=== PATIENT | male | born 1950 | race Caucasian/White ===

== ENCOUNTER 2016-12-19 14:57 | Outpatient (CLI) ==
[2016-01-04 23:37] VITALS: BMI 20.9
[2016-12-19 16:20] LABS: BASOPHILS # (AUTO) 0.1 K/uL (0-0.2); BASOPHILS % (AUTO) 0.5 % (0.0-3.0); EOSINOPHILS # (AUTO) 0.1 K/ul (0.0-0.7); EOSINOPHILS % (AUTO) 0.7 % (0.0-7.0); HEMATOCRIT 38.5 % (42.0-52.0); HEMOGLOBIN 12.8 g/dl (14.0-18.0); IMMATURE GRANULOCYTE % (AUTO) 0.5 % (0.0-5.0); LYMPHOCYTES # (AUTO) 1.7 K/uL (0.60-3.4); LYMPHOCYTES % (AUTO) 13.8 (10.0-50.0); MEAN CORPUSCULAR HEMOGLOBIN 28.5 pg (27.0-31.0); MEAN CORPUSCULAR HGB CONC 33.2 (31.8-35.4); MEAN CORPUSCULAR VOLUME 85.7 fl (80.0-94.0); MONOCYTES # (AUTO) 0.7 K/uL (0.4-2.0); MONOCYTES % (AUTO) 5.2 (0-10); NEUTROPHILS % (AUTO) 79.3; PLATELET COUNT 374 10^3/uL (140-440); RED BLOOD COUNT 4.49 10^6/ul (4.70-6.10); WHITE BLOOD COUNT 12.65 K/ul (4.2-10.2)
[2016-12-19 16:53] LABS: ALBUMIN 3.6 g/dL (3.4-5.0); ALBUMIN/GLOBULIN RATIO 0.97; ANION GAP 13.8; BILIRUBIN,TOTAL 0.43 mg/dL (0.00-1.20); BUN/CREATININE RATIO 11.11; CALCIUM 9.5 mg/dL (8.2-10.2); CHOL/HDL RATIO 4.6 (4.5-6.4); CREATININE 1.26 mg/dL (0.60-1.10); POTASSIUM 3.8 mmol/L (3.5-5.1); TOTAL PROTEIN 7.3 g/dL (5.8-8.1)
--- NOTE | 2016-12-20 09:09 | MRI ---
EXAM: MRI right hip without contrast. HISTORY: Pain right hip. No right hip surgery reported. Symptoms chronic.. TECHNIQUE: Using a coil on a high field strength magnet multiplanar multisequence large and small f ield of view imaging obtained through the level of the right hip without intravenous or intra-articu lar gadolinium contrast. COMPARISON: CT pelvis 08/12/2013. MRI right hip 07/15/2013. Two-view plain film examination right hip 07/12/2013.. FINDINGS: Visualized lower lumbar spine shows discogenic disease L3-L4 L4-L5. Associated facet art hropathy. Both sacroiliac joints symmetric in appearance and intact. Mild osteoarthrosis pubic sym physis. Both femoral heads seated with normal lateral coverage. Some loss of bilateral femoral heads [place]. Intraosseous cyst formation over the anterior right femoral head neck junction. No joint aidan tered subchondral bone marrow edema or bone erosions involving either hip.. Tiny focus of subchondr al cyst formation over the superior lateral right hip acetabulum. Otherwise no large paralabral cys ts involving either hip. Some marginal osteophyte formation right hip. Slight anterior-superior we ightbearing eccentric joint space narrowing involving the right hip. No greater trochanteric or miles opsoas bursitis involving either hip. The muscle bulk of the pelvis and surrounding both hips relat ively symmetric without acute strain. Both proximal hamstring origins intact. Both sciatic nerves normal in appearance along their visual ized course. No inguinal bowel herniation or enlarged lymphadenopathy. No pelvic sidewall lymphade nopathy. No pelvic ascites.. Question transurethral resection prostate defect. Bladder otherwise within normal limit in morphology. Incidental note of endovascular stent grafting of a infrarenal ab dominal aortic aneurysm.. IMPRESSION: Discogenic disease at L3-L5. Associated facet arthropathy. Mild osteoarthrosis pubic symphysis. No acute fracture, stress fracture or avascular necrosis involving either hip. No hip effusions , s urrounding bursitis or acute muscle strain. Mild osteoarthrosis right hip. Specifically involving t he right hip, there is loss of femoral head sphericity with some intraosseous cyst formation over th e anterior right femoral head neck junction. Correlate clinically for femoral acetabular impingemen t.
== END 2016-12-19 14:58 | disposition home or self-care (01) ==
LOC: RAD 14:57
PROVIDERS: ATTEND Nurse Practitioner Family
DX: M25.551 Pain in right hip (principal); Z72.0 Tobacco use; Z12.5 Encounter for screening for malignant neoplasm of prostate
CPT/HCPCS: 36415; 80053; 80061; 84443; 85025

== ENCOUNTER 2017-02-07 10:46 | Emergency (ER) ==
[2017-02-07] MEDS ORDERED: LIDOCAINE 1 % AMP 5 ML (SUTURES) SQ STA (10:48)
[2017-02-07 10:50] VITALS: BP 161/87; TEMP 97.4; BMI 20.2
--- NOTE | 2017-02-07 11:28 | ED.PDOC ---
General ED Provider: Dr. CARLOTTA STORM Chief Complaint: Knee Pain/Injury Stated Complaint: Patient states he accidetally shot his left knee with an arrow on the left knee. He tried to pull it out but was too painful. Time Seen by Physician: 10:49 Mode of Arrival: Wheelchair Information Source: Patient Exam Limitations: No limitations Primary Care Provider: PADMAJA GONGORA Nursing and Triage Documentation Reviewed and Agree: Yes Skin Complaint Exam - Skin/Soft Tissue Complaint/Exam Onset/Duration: 1 hour Symptoms Are: Still present Initial Severity: Severe Current Severity: Severe Location: Left knee Character: Reports: Painful Associated Signs and Symptoms: Reports: Tenderness Skin Findings: Present: Other (Arrow stuck on the left knee appears to be superfical.) Review of Systems - Review Of Systems Constitutional: Reports: No symptoms Eyes: Reports: No symptoms Ears, Nose, Mouth, Throat: Reports: No symptoms Respiratory: Reports: No symptoms Cardiac: Reports: No symptoms GI: Reports: No symptoms : Reports: No symptoms Musculoskeletal: Reports: Joint pain Skin: Reports: No symptoms Neurological: Reports: No symptoms Endocrine: Reports: No symptoms Hematologic/Lymphatic: Reports: No symptoms All Other Systems: Reviewed and Negative Past Medical History - Past Medical History Endocrine: Reports: None Cardiovascular: Reports: CAD, Other Respiratory: Reports: None Hematological: Reports: None Gastrointestinal: Reports: None Genitourinary: Reports: Other (urinary retension) Neuro/Psych: Reports: None Musculoskeletal: Reports: None Cancer: Reports: None Other Pertinent Past Medical History: HERNIA REPAIR. STENTS. - Surgical History General Surgical History: Reports: Other (AAA repair). Denies: CABG (HERNIA REPAIR. STENTS.) - Family History Family History: Reports: Unknown - Social History Smoking Status: Current every day smoker, Heavy tobacco smoker Hx Substance Use: Yes (SUBSTANCE IN THE PAST) Alcohol Screening: None - Immunizations Tetanus Shot up to Date: Yes Physical Exam - Physical Exam Appearance: Ill-appearing Ill-appearing: Mild Pain Distress: Severe Musculoskeletal: Normal strength, No edema, No calf tenderness, Limited ROM (on the left knee due to pain ) Skin: Warm, Dry, Normal color Neurological: Sensation intact, Motor intact, Cranial nerves intact, Alert, Oriented Psychiatric: Anxious Interpretation - Radiology Interpretation Radiology Interpretation By: ED Physician Radiology Results: Positive (Foreign body on the left knee) Radiology Interpretation By: ED Physician Radiology Results: Negative (previous foreign body not visualized.) Procedures - Laceration/Wound Repair left knee Wound Description: Other (circular from the arrow trauma. ) Wound Length (cm): 1 Wound Width: 1 Wound Depth: 1 Wound Explored: Clean Wound Irrigated: Yes Wound Prep: Hibiclens Anesthesia: Lidocaine Suture Size and Type: ethlone 4.0 Number of Sutures: 4 (Running ) Layer Closure?: No Sterile Dressing Applied?: Yes Splint Applied?: No - Foreign Body Removal Location of Foreign Object: Left knee Foreign Object: cross akin Arrow Depth of Object: 1.5 cm Type of Anesthesia: Local Medication Used: Yes: Lidocaine Prep: Hibiclens Irrigation: Yes (150 cc) Skin Incised: No Instruments Used: Yes: Manual Foreign Body Identified and Removed: Yes (cross akin Arrow removed intact) Critical Care Note - Critical Care Note Total Time (mins): 0 Course - Course Orders, Labs, Meds: Orders Category Date Time Status Lidocaine HCl/Pf [Lidocaine 1 % Amp 5 ml (Sutures)] MEDS 02/07/17 12:45 Discontinued 5 ml .ROUTE .STK-MED ONE Lidocaine HCl/Pf [Lidocaine 1 % Amp 5 ml (Sutures)] MEDS 02/07/17 10:48 Discontinued 5 ml SQ ONCE STA KNEE, LEFT 4 VIEWS Stat RADS 02/07/17 10:48 Completed Medications Discontinued Medications Generic Name Dose Route Start Last Admin Trade Name Chilo PRN Reason Stop Dose Admin Lidocaine HCl 5 ml 02/07/17 10:48 02/07/17 11:01 Lidocaine 1 % Amp 5 Ml (Sutures) SQ 02/07/17 10:49 5 ml ONCE STA Administration Vital Signs: Temp Pulse Resp BP Pulse Ox 02/07/17 10:46 97.4 F L 77 20 161/87 H 96 Departure - Departure Time of Disposition: 11:30 Disposition: HOME SELF-CARE Discharge Problem: Injury of knee, Foreign body (FB) in soft tissue Instructions: Laceration (ED), Soft Tissue Foreign Body (ED) Condition: Fair Pt referred to PMD for follow-up: Yes Additional Instructions: Have sutures removed in 7-10 days Report signs of infection Allergies/Adverse Reactions: Allergies No Known Allergies Allergy (Verified 02/07/17 10:50) Home Medications: Ambulatory Orders 1 [No Reported Medications] 02/07/17 Disposition Discussed With: Patient, Family
--- NOTE | 2017-02-07 11:35 | DI ---
EXAM: Left knee, three views. HISTORY: Pain. Trauma with arrow. COMPARISON: None. FINDINGS: AP, oblique and notch views of the left knee. On the initial image, a metallic tip the Ar row was seen with its tip projecting over the distal femur. No lateral view is available. This was removed and the soft and two images. There are no acute or healing fractures. There are no lytic o r blastic lesions. Soft tissues are normal. There is no joint effusion. No significant degenerati ve changes are seen. IMPRESSION: 1. No acute fracture. No radiopaque foreign bodies. 2. Removal of arrow from soft tissues.
[2017-02-07] MEDS ORDERED: LIDOCAINE 1 % AMP 5 ML (SUTURES) ONE (12:45)
== END 2017-02-07 12:01 | disposition home or self-care (01) ==
LOC: ED 10:46
DX: S81.042A Puncture wound with foreign body, left knee, initial encounter (principal); F17.210 Nicotine dependence, cigarettes, uncomplicated; W26.8XXA Contact with other sharp object(s), not elsewhere classified, initial encounter
CPT/HCPCS: 99283

== ENCOUNTER 2024-01-12 13:55 | Inpatient (IN) ==
--- NOTE | 2024-01-12 14:03 | ED.PDOC ---
General ED Provider: Dr. ESTELLA KIDD MD Chief Complaint: Fever Stated Complaint: Patient is a 73-year-old male that reported to the emergency department in care of his daughter for a 2-day history of shortness of breath and weakness. Patient stated that he woke up Thursday and felt short of breath and felt very weak all day. Patient stated that he tried to stay home and rest. Patient's daughter stated that she called her primary care doctor and they were able to get him in today. At the primary care office today the patient was found to be hypoxic and so was sent to the emergency department upon arrival to the emergency department the patient had an O2 sat of 87% on room air. Patient was also febrile with a temperature of 101 Fahrenheit. Patient stated that his highest temperature that he had at home was 102.3 Fahrenheit and took ibuprofen which helped reduce his temperature. Patient also complained of nausea and vomiting with his current symptoms. Patient stated that he is also had a few bouts of diarrhea. Patient has a past medical history of a CVA 2 years ago. Patient's current NIH is 0. Patient's GCS is 15. Placed patient on 2 L nasal cannula to keep his O2 sat above 94%. Patient denies any chest pain, dizziness, syncope, loss of consciousness, abdominal pain, or any other acute symptoms not currently mentioned in the HPI. Patient denied being around any other sick contacts. Time Seen by Provider: 01/12/24 13:57 Mode of Arrival: Walk-In Information Source: Patient Exam Limitations: No limitations Primary Care Provider: LUCHO SOOD MD Nursing and Triage Documentation Reviewed and Agree: Yes Does Patient Take Opioids?: No Is Patient Opioid Naive?: No What is Opioid Naive?: *Opioid Naive implies the patient is not already taking opioids or not chronically receiving opioids on a daily basis. *PRN dosing is not "usually" associated with tolerance. *Patients are at higher risk of over-sedation and aspiration. Is Patient Opioid Tolerant?: No What is Opioid Tolerant?: *Opioid Tolerance implies less than the expected response to an opioid. *Acquired tolerance is defined by the patient taking 60mg of oral morphine daily (or equianalgesic dose of another opioid) for 1 week or more. *Often associated with chronic pain. *May take more than usual dose to achieve desired pain control. Review of Systems Review Of Systems Constitutional: Reports Fever Eyes: Reports No symptoms Ears, Nose, Mouth, Throat: Reports No symptoms Respiratory: Reports No symptoms Cardiac: Reports No symptoms GI: Reports No symptoms : Reports No symptoms Musculoskeletal: Reports No symptoms Skin: Reports No symptoms Neurological: Reports No symptoms Endocrine: Reports No symptoms Hematologic/Lymphatic: Reports No symptoms All Other Systems: Reviewed and Negative [facility] Medical History Stroke I63.9 - Cerebral infarction, unspecified (ICD-10) Hiatal hernia K44.9 - Diaphragmatic hernia without obstruction or gangrene (ICD-10) Abdominal aortic aneurysm I71.4 - Abdominal aortic aneurysm, without rupture (ICD-10) Disorder of prostate N42.9 - Disorder of prostate, unspecified (ICD-10) Social History Smoking and tobacco status: Current every day smoker Tobacco: How many years used: 50 Passive smoking exposure: Yes Quit status: not considering quitting Second hand smoke exposure: Yes Alcohol intake: former Year quit: 1998 Counseling given: No Counseling provided: none Substance use type: does not use Counseling given: No Counseling provided: none Special chanel needs: No Agree to transfusion: Yes Household members: significant other Housing: house Marital status: S SINGLE Lives independently: Yes Number of children: 1 Number of grandchildren: 3 Highest education level completed: high school graduate Financial difficulty paying for basics: not very hard service: No Current occupational status: retired 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 Pets and animals: Yes (cat) History of recent travel: No Sexually active: Yes Do you think of yourself as: straight/heterosexual Current gender identity: male Seatbelt use: always Drives intoxicated or rides with intoxicated class a regional truck driver: No Water heater temperature set < 120 degrees: Yes Working smoke detector in home: Yes Fire extinguisher in home: No Carbon monoxide detector in home: No Firearms in home: No Surgical History History of heart surgery 2014 - stent for Abdominal Aortic Aneurysm Z98.890 - Other specified postprocedural states (ICD-10) Status post hernia repair Z98.890 - Other specified postprocedural states (ICD-10) Physical Exam Physical Exam Appearance: Reports Ill-appearing Ill-appearing: Mild Pain Distress: None Eyes: Reports RAMIN, EOMI and Conjunctiva clear ENT: Reports Ears normal, Nose normal and Oropharynx normal Neck: Supple Respiratory: Reports Airway patent, Breath sounds diminished (Breath sounds diminished bibasilar.) and Crackles (Crackles heard in the bibasilar lung muñiz.) Cardiovascular: Reports RRR, Pulses normal, No rub and No murmur GI/: Reports Soft, Nontender, No masses and Bowel sounds normal Musculoskeletal: Reports Normal strength and ROM intact Skin: Reports Warm, Dry and Normal color Neurological: Reports Sensation intact, Motor intact, Cranial nerves intact, Alert and Oriented Psychiatric: Reports Affect appropriate and Mood appropriate Interpretation EKG Interpretation EKG Interpretation By: ED Physician Time of EKG #1: 14:30 Rate: Normal Rhythm: Sinus Ectopy: None Ward: Left ST Segment: Normal Radiology Interpretation Radiology Interpretation By: Radiologist Radiology Results: Positive Exam Interpreted: CXR Xray Comments: RED WHEELER. Course Course 01/12/24 14:25 01/12/24 13:57 Orders, Labs, Meds: Lab Review 01/12/24 01/12/24 13:57 14:25 WBC 8.02 RBC 4.35 L Hgb 13.1 L Hct 40.7 L MCV 93.6 MCH 30.1 MCHC 32.2 RDW Coeff of Rodo 12.4 Plt Count 190 Immature Gran % (Auto) 0.6 Neut % (Auto) 79.0 H Lymph % (Auto) 10.2 Shannon % (Auto) 10.0 Eos % (Auto) 0.0 Baso % (Auto) 0.2 Neut # (Auto) 6.3 Lymph # (Auto) 0.8 Shannon # (Auto) 0.8 Eos # (Auto) 0.0 Baso # (Auto) 0.0 Immature Gran # (Auto) 0.1 Sodium 137.2 Potassium 4.30 Chloride 100.8 Carbon Dioxide 25.1 Anion Gap 15.60 BUN 60.6 H* Creatinine 3.17 H Estimated GFR (MDRD) 19.00 BUN/Creatinine Ratio 19.11 Glucose 113.3 H Calcium 9.30 Total Bilirubin 1.60 H AST 53.4 ALT 33.3 Alkaline Phosphatase 108.6 Total Creatine Kinase 557.1 H CK-MB (CK-2) 2.470 H CK-MB (CK-2) % 0.4400 Troponin I 0.038 Total Protein 7.42 Albumin 4.22 Globulin 3.20 Albumin/Globulin Ratio 1.31 Influ A Molecular Assay Negative by naat Influ B Molecular Assay Negative by naat RSV Antigen Negative by naat SARS CoV-2 RNA Rapid JENISE Negative Orders Category Date Time Status EKG-(ED ONLY) Stat CARDIO 01/12/24 14:00 Completed NEBULIZER TREATMENT Stat CARDIO 01/12/24 13:59 Completed BLOOD CULTURE (ED ONLY) Stat LAB 01/12/24 14:25 Ordered CBC W/ AUTO DIFF Stat LAB 01/12/24 14:25 Completed CK [CREATINE KINASE] Stat LAB 01/12/24 14:25 Completed CMP [COMPREHENSIVE METABOLIC PANEL] Stat LAB 01/12/24 13:57 Completed FLU A & B MOLECULAR [FLU A/B MOLECULAR] Stat LAB 01/12/24 14:25 Completed RAPID STREP SCREEN [MOLECULAR GROUP A STREP] Stat LAB 01/12/24 14:25 Completed RSV Stat LAB 01/12/24 14:25 Completed SARS COV-2 RNA RAPID JENISE Stat LAB 01/12/24 14:25 Completed TROPONIN I Stat LAB 01/12/24 14:25 Completed Acetaminophen [Tylenol] Meds 01/12/24 14:46 Discontinued 1,000 mg PO ONCE STA Ipratropium/Albuterol Neb [Duoneb] Meds 01/12/24 13:57 Discontinued 3 ml NEB ONCE STA Methylprednisolone Sod Succ/Pf [Solu-Medrol 125 mg] Meds 01/12/24 13:57 Discontinued 125 mg IVP ONCE ONE Ondansetron HCl/Pf [Zofran 4 mg/2 ml] Meds 01/12/24 14:46 Discontinued 4 mg IVP ONCE STA Sodium Chloride 0.9% [Sodium Chloride] 1,000 ml Meds 01/12/24 14:53 Active IV BOLUS CHEST, 1V AP ONLY Stat RADS 01/12/24 14:00 Ordered Medications Generic Name Dose Route Start Last Admin Trade Name Freq PRN Reason Stop Dose Admin Sodium Chloride 1,000 mls @ 1,000 mls/hr 01/12/24 14:53 01/12/24 15:02 Sodium Chloride IV 01/12/24 15:52 1,000 mls/hr BOLUS ONE Administration Discontinued Medications Generic Name Dose Route Start Last Admin Trade Name Freq PRN Reason Stop Dose Admin Acetaminophen 1,000 mg 01/12/24 14:46 01/12/24 14:59 Acetaminophen 500 Mg Tablet PO 01/12/24 14:47 1,000 mg ONCE STA Administration Albuterol/Ipratropium 3 ml 01/12/24 13:57 01/12/24 14:54 Ipratropium/Albuterol Vial.Neb NEB 01/12/24 13:58 3 ml ONCE STA Administration Methylprednisolone Sodium Succinate 125 mg 01/12/24 13:57 01/12/24 14:37 Methylprednisolone Sod Succ/Pf 125 Mg/2 Ml Vial IVP 01/12/24 13:58 125 mg ONCE ONE Administration Ondansetron HCl 4 mg 01/12/24 14:46 01/12/24 14:58 Ondansetron Hcl/Pf 4 Mg/2 Ml Sdv IVP 01/12/24 14:47 4 mg ONCE STA Administration Vital Signs: Temp Pulse Resp BP Pulse Ox O2 Flow Rate 01/12/24 14:30 2 01/12/24 14:00 101.1 F H 90 24 H 122/83 88 L Discharge Plan Discharge Patient Disposition: ADMITTED INPATIENT Discharge Problem: Dehydration, Gastroenteritis, Acute hypoxemic respiratory failure Rhabdomyolysis Qualifiers: Rhabdomyolysis type: non-traumatic Qualified Code(s): M62.82 - Rhabdomyolysis COPD (chronic obstructive pulmonary disease) Qualifiers: COPD type: COPD with acute exacerbation Qualified Code(s): J44.1 - Chronic obstructive pulmonary disease with (acute) exacerbation Pneumonia Qualifiers: Pneumonia type: due to unspecified organism Laterality: right Lung location: l ower lobe of lung Qualified Code(s): J18.9 - Pneumonia, unspecified organism Did you review [place] CLINICAL COUNSELOR for ALL controlled substances?: Not Applicable ED Provider: ESTELLA KIDD Condition: Stable Physician Progress Note: Patient is a 73-year-old male that reported to the emergency department in care of his daughter for a 2-day history of shortness of breath and weakness. Patient stated that he woke up Thursday and felt short of breath and felt very weak all day. Patient stated that he tried to stay home and rest. Patient's daughter stated that she called her primary care doctor and they were able to get him in today. At the primary care office today the patient was found to be hypoxic and so was sent to the emergency department upon arrival to the emergency department the patient had an O2 sat of 87% on room air. Patient was also febrile with a temperature of 101 Fahrenheit. Patient stated that his highest temperature that he had at home was 102.3 Fahrenheit and took ibuprofen which helped reduce his temperature. Patient also complained of nausea and vomiting with his current symptoms. Patient stated that he is also had a few bouts of diarrhea. Patient has a past medical history of a CVA 2 years ago. Patient's current NIH is 0. Patient's GCS is 15. Placed patient on 2 L nasal cannula to keep his O2 sat above 94%. Patient denies any chest pain, dizziness, syncope, loss of consciousness, abdominal pain, or any other acute symptoms not currently mentioned in the HPI. Patient denied being around any other sick contacts. -Will order normal saline, DuoNeb treatment, IV Methylpred 125 mg, EKG, troponin, chest x-ray, and baseline labs. Will order abg. -EKG shows normal sinus rhythm with a rate of 81 bpm. Minimal voltage criteria for left ventricular hypertrophy is noted. No ST elevations noted. Left axis deviation noted. -Spoke to respiratory and will place patient on a Ventimask at 6 L to keep his O2 sat above 94% as the patient is mouth breathing and the nasal cannula is not helping at the current time. -Patient was found to have an NEFTALY on CMP. BUN is 60.6 and creatinine is 1.7 -Troponin normal. CK elevated at 550. Patient is currently in rhabdomyolysis. Will continue IV fluids. -Flu COVID and RSV negative. -It appears patient has COPD which has been undiagnosed until now. Patient appears to be in acute COPD exacerbation. Patient has smoked his entire life per his daughter at bedside. -Will give another DuoNeb treatment. -Chest x-ray shows COPD. This x-ray was interpreted by the emergency room physician. -Spoke to hospitalist, JANICE Roy, and gave her an update on this patient and his current vital signs and treatment as to now. I also discussed his diagnosis of acute hypoxemic respiratory failure with COPD exacerbation and right lower lobe pneumonia. She has agreed to admit the patient to the hospital. Critical Care Procedure Note Authorized and Performed by:Estella Kidd MD, MPH Total critical care time: 60minutes Due to a high probability of clinically significant, life threatening deterioration, the patient required my highest level of preparedness to intervene emergently and I personally spent this critical care time directly and personally managing the patient. This critical care time included obtaining a history; examining the patient; pulse oximetry; ordering and review of studies; arranging urgent treatment with development of a management plan; evaluation of patient's response to treatment; frequent reassessment; and, discussions with other provider. This critical care time was performed to assess and manage the high probability of imminent, life-threatening deterioration that could result in multi-organ failure. It was exclusive of separately billable procedures and treating other patients and teaching time. Please see MDM section and the rest of the note for further information on patient assessment and treatment.
[2024-01-12 14:33] LABS: BASOPHILS % (AUTO) 0.2 % (0.0-3.0); HEMATOCRIT 40.7 % (42.0-52.0); HEMOGLOBIN 13.1 g/dl (14.0-18.0); IMMATURE GRANULOCYTE # (AUTO) 0.1 (0.0-1.0); IMMATURE GRANULOCYTE % (AUTO) 0.6 % (0.0-5.0); LYMPHOCYTES # (AUTO) 0.8 K/uL (0.60-3.4); LYMPHOCYTES % (AUTO) 10.2 (10.0-50.0); MEAN CORPUSCULAR HEMOGLOBIN 30.1 pg (27.0-31.0); MEAN CORPUSCULAR HGB CONC 32.2 (31.8-35.4); MEAN CORPUSCULAR VOLUME 93.6 fl (80.0-94.0); MONOCYTES # (AUTO) 0.8 K/uL (0.4-2.0); NEUTROPHILS # (AUTO) 6.3 K/ul (2.0-6.9); PLATELET COUNT 190 10^3/uL (140-440); RDW COEFFICIENT OF VARIATION 12.4 % (11.6-14.8); RED BLOOD COUNT 4.35 10^6/ul (4.70-6.10); WHITE BLOOD COUNT 8.02 K/ul (4.2-10.2)
[2024-01-12] MEDS: SOLU-MEDROL 125 MG IVP ONE (14:37)
[2024-01-12 14:45] LABS: ALANINE AMINOTRANSFERASE 33.3 U/L (0-50); ALBUMIN 4.22 g/dL (3.5-5.0); ALKALINE PHOSPHATASE 108.6 U/L (56-119); ASPARTATE AMINO TRANSFERASE 53.4 U/L (17-59); BILIRUBIN,TOTAL 1.6 mg/dL (0.2-1.3); CALCIUM 9.3 mg/dL (8.4-10.2); CARBON DIOXIDE 25.1 mmol/L (22-30.0); CHLORIDE 100.8 mmol/L (98-107); CREATININE 3.17 mg/dL (0.60-1.10); GLUCOSE 113.3 mg/dL (74-106); POTASSIUM 4.3 mmol/L (3.5-5.1); SODIUM 137.2 mmol/L (134.5-145); TOTAL PROTEIN 7.42 g/dL (6.3-8.2)
[2024-01-12 14:53] LABS: BLOOD UREA NITROGEN 60.6 mg/dL (9-20)
[2024-01-12 14:53] LABS: MOLECULAR FLU A NEGATIVE BY NAAT (NEGATIVE); MOLECULAR FLU B NEGATIVE BY NAAT (NEGATIVE); RSV MOLECULAR NEGATIVE BY NAAT (NEGATIVE); SARS COV-2 RNA RAPID NAAT NEGATIVE (NEGATIVE)
[2024-01-12] MEDS: DUONEB NEB STA ×2 (14:54→15:34)
[2024-01-12] MEDS: ZOFRAN 4 MG/2 ML IVP STA (14:58)
[2024-01-12 14:59] LABS: CREATINE KINASE 557.1 U/L (55-170); TROPONIN I 0.038 ng/ml (0.0000-0.120)
[2024-01-12] MEDS: TYLENOL PO STA (14:59)
[2024-01-12 15:02] LABS: CREATINE KINASE MB 2.47 ng/ml (0.0-2.38)
[2024-01-12] MEDS: SODIUM CHLORIDE 1,000 ML IV ONE (15:02)
--- NOTE | 2024-01-12 15:31 | DI ---
EXAM: CHEST RADIOGRAPH TECHNIQUE: Single frontal chest radiograph. HISTORY: Shortness of breath. COMPARISON: 08/20/2015 FINDINGS: EKG leads project over the chest. Multiple calcified granulomas bilaterally, left and right, with mu ltiple calcified hilar and mediastinal nodes, again noted. Equivocal mild pneumonia versus atelectasis of the right base. No pleural effusion or pneumothorax is seen. Heart size is normal. Small hiatal hernia. No acute displaced rib fractures are identified. IMPRESSION: 1. Equivocal mild pneumonia versus atelectasis of the right base.
[2024-01-12 15:38] LABS: ABG O2 HGB 92.2 % (95-100); ABG PH 7.43 (7.35-7.45); BEecf -3.1 (-2.0-3.0); COHb 2.1 (0.5-1.5); HCO3 21.2 (21-28); TCO2 22.2 (19-24); sO2 92.4 % (94-98)
[2024-01-12] MEDS: MAXIPIME 1 GM VIAL 1 GM in SODIUM CHLORIDE 50 ML IV ONE (15:45)
[2024-01-12] MEDS ORDERED: ZOFRAN 4 MG/2 ML IVP PRN (16:32)
[2024-01-12] MEDS ORDERED: DOXY-100 100 MG in SODIUM CHLORIDE 100ML 100 ML IV SCH (16:35)
[2024-01-12 16:36] VITALS: BMI 22.3
[2024-01-12] MEDS: LACTATED RINGERS 1,000 ML IV SCH (16:46)
--- NOTE | 2024-01-12 17:36 | CT ---
EXAM: CT ABDOMEN AND PELVIS WITHOUT CONTRAST HISTORY: Acute renal failure abdominal pain TECHNIQUE: CT acquisition of the abdomen and pelvis from the lower thorax through the pelvis without IV contrast administration. 2-D coronal and sagittal reformatted images were obtained from the axial source images. Oral Contrast: None. CT Dose Reduction Techniques Performed: Yes. COMPARISON: None. FINDINGS: Lower Thorax: There is right lower lobe pneumonia. There is patchy pneumonia in the left lower lobe with scarring. There are calcified granulomas. Liver: No mass. Normal morphology. Biliary: Distended gallbladder without stones. Pancreas: No mass or evidence of pancreatitis. No duct dilation. Spleen: No mass. No splenomegaly. Adrenals: No mass. Kidneys/Ureters: No renal mass. Multiple bilateral renal stones are present. There is no hydronephr osis. GI Tract: No bowel dilation. No bowel wall thickening. Peritoneal Cavity: No ascites. Retroperitoneum: No mass or fluid collection. Lymph Nodes: No lymphadenopathy. Vasculature: There is an infrarenal endoluminal aortobi-iliac stent graft. Pelvis: Normal pelvic structures. Bladder is normal. Bones/Soft Tissues: Scoliosis. Degenerative disc disease. There are bilateral fat containing inguin al hernias. IMPRESSION: 1. Right lower lobe pneumonia. 2. Bilateral nephrolithiasis without hydronephrosis. 3. Aortobi-iliac endoluminal stent graft. 4. Other noncontributory details as described above. All CT scans are performed using dose optimization techniques as appropriate to the performed exam an d include at least one of the following: Automated exposure control, adjustment of the mA and/or kV according t o size, and the use of iterative reconstruction technique.
--- NOTE | 2024-01-12 17:38 | CT ---
EXAM: CHEST CT WITHOUT CONTRAST. Technique: Chest CT was performed without contrast. Multiplanar reformats were made. History: Respiratory failure Comparison: None. FINDINGS: Lungs/Pleura: Mixed changes in the right lower lobe consisting of some peribronchial thickening, inte rstitial and ground-glass density changes as well as areas of mixed nodularity. May reflect developi ng consolidating pneumonia. There is also ground-glass change in the inferior posterior right upper lobe. Scar versus atelectasis left lung. Micronodule left upper lobe less than 3 mL image 14. Scatt ered calcified granulomas are present bilaterally. Trace effusion on the right.No pneumothorax. Mediastinum: Calcified mediastinal lymph nodes. Cardiovascular: Cardiac size is normal No pericardial effusion. Aortic ectasia. Measures up to 3.5 c m ascending thoracic aorta. Chest wall, thoracic inlet, and axillae: No mass or adenopathy. Imaged upper abdomen and GE junction: Bilateral nephrolithiasis. Small hiatal hernia. Endovascular stent aorta. Bones: Degenerative change of the thoracic spine. IMPRESSION: 1. Developing infiltrative process with a somewhat reticular nodular and mixed with ground-glass dens ity changes right lower lobe. 2. Less pronounced pneumonia/infiltrate right upper lobe. 3. Ascending aortic ectasia. The 4. Short-term follow-up after resolution of current process recommended to reassess the area of nodul arity 3 months or less. 5. Nephrolithiasis. 6. Granulomatous disease 7. Bilateral nephrolithiasis. All CT scans are performed using dose optimization techniques as appropriate to the performed exam an d includes at least one of the following: Automated exposure control, adjustment of the mA and/or kV according to size, and the use of iterative reconstruction technique. All CT scans are performed using dose optimization techniques as appropriate to the performed exam an d include at least one of the following: Automated exposure control, adjustment of the mA and/or kV according t o size, and the use of iterative reconstruction technique.
[2024-01-12] MEDS: DOXY-100 100 MG in SODIUM CHLORIDE 100ML 100 ML IV SCH (17:41)
[2024-01-12] MEDS: DUONEB NEB SCH (18:28)
[2024-01-12] MEDS: SOLU-MEDROL 40 MG IVP SCH (21:06)
[2024-01-12 23:40] LABS: BILIRUBIN,URINE Negative (NEGATIVE); CLARITY,URINE Clear (CLEAR); COLOR,URINE Yellow (YELLOW); GLUCOSE, URINE (UA) Trace (NEGATIVE); KETONES,URINE Negative (NEGATIVE); LEUKOCYTE ESTERASE ,URINE Negative (NEGATIVE); NITRITE,URINE Negative (NEGATIVE); PH,URINE 5.5 (5-9); PROTEIN,URINE 1+ (NEGATIVE); URINE, BLOOD Trace-intact (NEGATIVE); UROBILINOGEN,URINE 0.2 (0.2)
[2024-01-12 23:57] LABS: BACTERIA,URINE TRACE (NOT PRESENT); SQUAMOUS EPITHELIAL CELL,UR 0-2 (0-5); URINE RBC, MICROSCOPIC 0-2 (0-2); URINE WBC, MICROSCOPIC 0-2 (0-2)
[2024-01-13] MEDS: PROTONIX PO SCH (05:13)
[2024-01-13 05:46] LABS: HEMATOCRIT 34.4 % (42.0-52.0); HEMOGLOBIN 11.4 g/dl (14.0-18.0); IMMATURE GRANULOCYTE % (AUTO) 0.7 % (0.0-5.0); LYMPHOCYTES # (AUTO) 0.3 K/uL (0.60-3.4); LYMPHOCYTES % (AUTO) 5.5 (10.0-50.0); MEAN CORPUSCULAR HEMOGLOBIN 30.6 pg (27.0-31.0); MEAN CORPUSCULAR HGB CONC 33.1 (31.8-35.4); MEAN CORPUSCULAR VOLUME 92.2 fl (80.0-94.0); MONOCYTES # (AUTO) 0.1 K/uL (0.4-2.0); MONOCYTES % (AUTO) 1.8 (0-10); NEUTROPHILS # (AUTO) 5.6 K/ul (2.0-6.9); PLATELET COUNT 197 10^3/uL (140-440); RDW COEFFICIENT OF VARIATION 12.4 % (11.6-14.8); RED BLOOD COUNT 3.73 10^6/ul (4.70-6.10); WHITE BLOOD COUNT 6.03 K/ul (4.2-10.2)
[2024-01-13 06:00] LABS: ALANINE AMINOTRANSFERASE 27.5 U/L (0-50); ALBUMIN 3.41 g/dL (3.5-5.0); ALKALINE PHOSPHATASE 106.3 U/L (56-119); ASPARTATE AMINO TRANSFERASE 42.5 U/L (17-59); BILIRUBIN,TOTAL 0.92 mg/dL (0.2-1.3); BLOOD UREA NITROGEN 53.9 mg/dL (9-20); CALCIUM 8.35 mg/dL (8.4-10.2); CARBON DIOXIDE 17.3 mmol/L (22-30.0); CHLORIDE 106.2 mmol/L (98-107); CREATININE 2.47 mg/dL (0.60-1.10); GLUCOSE 273.1 mg/dL (74-106); POTASSIUM 4.02 mmol/L (3.5-5.1); SODIUM 134.2 mmol/L (134.5-145); TOTAL PROTEIN 6.12 g/dL (6.3-8.2)
[2024-01-13] MEDS: CRESTOR PO SCH (08:48)
[2024-01-13] MEDS: FLOMAX PO SCH (08:48)
[2024-01-13] MEDS: ROCEPHIN 1 GM/50 ML D5W 1 GM/50 ML BAG IV SCH (08:49)
--- NOTE | 2024-01-13 11:15 | PCM ---
Date of Service Date Seen by Provider: 01/13/24 Time Seen by Provider: 09:30 Admit Day/Time Admission Date: 01/12/24 Admission Time: 15:38 Reason for Admission Chief Complaint: RHABDOMYLOSIS; ACUTE HYPOX; RESP FAIL; COPD EX; PN Hospital Provider Hospital Provider: ROSS PFEIFFER [place]-C[place] [facility] [place] Primary Care Physician: LUCHO SOOD MD History of Present Illness History of Present Illness: Patient is a 73 year old male with pmhx of GERD, anemia, elevated PSA, abdominal aneurysm s/p stent, chronic smoker, hx of CVA 3 years ago who presented to ER as directed by PCP for worsening SOB, URI symptoms, fever, diarrhea, and hypoxia noted at PCP office. Pt states this has been ongoing for past few days. He was noted in ER to have 101 temp and saturating in the 80s. He eventually was up to 10 L venturi mask. CXR showed RLL pna. Procal >5. Renal function worsened. He was given zosyn and duonebs and fluids. Admitted to med surg. Once on floor, CT c/a/p without contrast done. Confirmed RLL and RUL pneumonia, no other acute processes noted. Today patient is down to 4L, he is feeling better, cutting up with the staff. States he lives alone in an apt but his daughter helps him. Does not wear oxygen at baseline. Case Discussed With Case Discussed With: Patient's case was discussed with the ER Physicians, Dr. Conte. [facility] Medical History Stroke I63.9 - Cerebral infarction, unspecified (ICD-10) Hiatal hernia K44.9 - Diaphragmatic hernia without obstruction or gangrene (ICD-10) Abdominal aortic aneurysm I71.4 - Abdominal aortic aneurysm, without rupture (ICD-10) Disorder of prostate N42.9 - Disorder of prostate, unspecified (ICD-10) Surgical History History of heart surgery 2014 - stent for Abdominal Aortic Aneurysm Z98.890 - Other specified postprocedural states (ICD-10) Status post hernia repair Z98.890 - Other specified postprocedural states (ICD-10) Family History SISTER COPD (chronic obstructive pulmonary disease) case management patient BROTHER COPD (chronic obstructive pulmonary disease) case management patient Social History Smoking and tobacco status: Current every day smoker Tobacco: How many years used: 50 Passive smoking exposure: Yes Quit status: not considering quitting Second hand smoke exposure: Yes Alcohol intake: former Year quit: 1998 Counseling given: No Counseling provided: none Substance use type: does not use Counseling given: No Counseling provided: none Special chanel needs: No Agree to transfusion: Yes Household members: significant other Housing: house Marital status: S SINGLE Lives independently: Yes Number of children: 1 Number of grandchildren: 3 Highest education level completed: high school graduate Financial difficulty paying for basics: not very hard service: No Current occupational status: retired 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 Pets and animals: Yes (cat) History of recent travel: No Sexually active: Yes Do you think of yourself as: straight/heterosexual Current gender identity: male Seatbelt use: always 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: No Water heater temperature set < 120 degrees: Yes Working smoke detector in home: Yes Fire extinguisher in home: No Carbon monoxide detector in home: No Firearms in home: No Allergies Allergies Allergy/AdvReac Type Severity Reaction Status Date / Time No Known Allergies Allergy Verified 01/12/24 14:35 Current Medications Home Medications tamsulosin 0.4 mg capsule (Flomax) 0.4 mg PO QDAY #30 caps 07/28/23 [Rx Confirmed 01/12/24 Last Taken Unknown] albuterol sulfate 90 mcg/actuation aerosol inhaler (Ventolin HFA) 2 puff inhalation Q4H PRN shortness of breath or wheezing #8.5 grams 08/31/23 [Rx Confirmed 01/12/24 Last Taken Unknown] losartan 100 mg-hydrochlorothiazide 12.5 mg tablet See Rx Instructions .Route .COMPLEX #90 tabs 10/14/23 [Rx Confirmed 01/12/24 Last Taken Unknown] rosuvastatin 20 mg tablet See Rx Instructions .Route .COMPLEX #90 tabs 10/14/23 [Rx Confirmed 01/12/24 Last Taken Unknown] pantoprazole 40 mg tablet,delayed release (Protonix) 40 mg PO QDAY #30 tabs 11/05/23 [Rx Confirmed 01/12/24 Last Taken Unknown] Home Acetaminophen (Acetaminophen 325 Mg Tablet) 650 mg PO Q4H PRN PRN Reason: Mild Pain Albuterol/Ipratropium (Ipratropium/Albuterol Vial.Neb) 3 ml NEB RTQ6H PENDING SALE TO [facility] Last Admin: 01/13/24 12:43 Dose: Not Given CEFTRIAXONE/D5W 1 GM PREMIX (Rocephin 1 Gm/50 Ml D5w) 1 gm in 50 mls @ 100 mls/hr IV DAILY PENDING SALE TO [facility] Stop: 01/16/24 08:59 Last Admin: 01/13/24 08:49 Dose: 100 mls/hr Lactated Ringer's (Lactated Ringers) 1,000 mls @ 100 mls/hr IV .Q10H PENDING SALE TO [facility] Last Admin: 01/13/24 08:47 Dose: 100 mls/hr Doxycycline Hyclate 100 mg/ (Sodium Chloride) 100 mls @ 50 mls/hr IV Q12HR PENDING SALE TO [facility] Stop: 01/15/24 16:59 Last Admin: 01/13/24 09:35 Dose: 50 mls/hr Methylprednisolone Sodium Succinate (Methylprednisolone Sod Succ/Pf 40 Mg/Ml Vial) 40 mg IVP Q8HR PENDING SALE TO [facility] Last Admin: 01/13/24 13:25 Dose: 40 mg Ondansetron HCl (Ondansetron Hcl/Pf 4 Mg/2 Ml Sdv) 4 mg IVP Q6H PRN PRN Reason: Nausea / Vomiting Pantoprazole Sodium (Pantoprazole Sodium 40 Mg Tablet.) 40 mg PO QDAC2 PENDING SALE TO [facility] Last Admin: 01/13/24 05:13 Dose: 40 mg Rosuvastatin Calcium (Rosuvastatin Calcium 10 Mg Tablet) 20 mg PO DAILY PENDING SALE TO [facility] Last Admin: 01/13/24 08:48 Dose: 20 mg Tamsulosin HCl (Tamsulosin Hcl 0.4 Mg Cap.Er.24h) 0.4 mg PO DAILY PENDING SALE TO [facility] Last Admin: 01/13/24 08:48 Dose: 0.4 mg Discontinued Medications Acetaminophen (Acetaminophen 500 Mg Tablet) 1,000 mg PO ONCE STA Stop: 01/12/24 14:47 Last Admin: 01/12/24 14:59 Dose: 1,000 mg Albuterol/Ipratropium (Ipratropium/Albuterol Vial.Neb) 3 ml NEB ONCE STA Stop: 01/12/24 13:58 Last Admin: 01/12/24 14:54 Dose: 3 ml Albuterol/Ipratropium (Ipratropium/Albuterol Vial.Neb) 3 ml NEB ONCE STA Stop: 01/12/24 15:21 Last Admin: 01/12/24 15:34 Dose: 3 ml Albuterol/Ipratropium (Ipratropium/Albuterol Vial.Neb) 3 ml NEB RTQ4H JODY Last Admin: 01/13/24 09:25 Dose: 3 ml Sodium Chloride (Sodium Chloride) 1,000 mls @ 1,000 mls/hr IV BOLUS ONE Stop: 01/12/24 15:52 Last Infusion: 01/12/24 16:46 Dose: Infused Cefepime HCl 1 gm/ Sodium (Chloride) 50 mls @ 100 mls/hr IV ONCE ONE Stop: 01/12/24 16:00 Last Admin: 01/12/24 15:45 Dose: 100 mls/hr Methylprednisolone Sodium Succinate (Methylprednisolone Sod Succ/Pf 125 Mg/2 Ml Vial) 125 mg IVP ONCE ONE Stop: 01/12/24 13:58 Last Admin: 01/12/24 14:37 Dose: 125 mg Ondansetron HCl (Ondansetron Hcl/Pf 4 Mg/2 Ml Sdv) 4 mg IVP ONCE STA Stop: 01/12/24 14:47 Last Admin: 01/12/24 14:58 Dose: 4 mg Opioid Naive vs. Tolerant Does Patient Take Opioids?: No Is Patient Opioid Naive?: Yes What is Opioid Naive?: *Opioid Naive implies the patient is not already taking opioids or not chron ically receiving opioids on a daily basis. *PRN dosing is not "usually" associated with tolerance. *Patients are at higher risk of over-sedation and aspiration. Is Patient Opioid Tolerant?: No What is Opioid Tolerant?: *Opioid Tolerance implies less than the expected response to an opioid. *Acquired tolerance is defined by the patient taking 60mg of oral morphine daily (or equianalgesic dose of another opioid) for 1 week or more. *Often associated with chronic pain. *May take more than usual dose to achieve desired pain control. Review of Systems Constitutional: Reports Fever, Fatigue and Weakness Head: Reports Normocephalic and Atraumatic Throat: Denies Sore Throat Cardiovascular: Denies Chest pain or Edema Respiratory: Reports Cough and Shortness of air Gastrointestinal: Reports Diarrhea; Denies Nausea, Vomiting, Abdominal pain or Melena Genitourinary: Denies Dysuria or Hematuria Dermatologic: Denies Rashes Neurological: Reports Weakness; Denies Headache Physical examination Most Recent Vital Signs: Most Recent Vital Signs Temperature 97.3 F L 01/13/24 05:06 Temperature Source Temporal Artery Scan 01/13/24 05:06 Temperature Source Temporal Artery Scan 01/12/24 14:00 Pulse Rate 55 L 01/13/24 05:06 Respiratory Rate 18 01/13/24 05:06 Blood Pressure 138/71 01/13/24 05:06 Blood Pressure Mean 93 01/13/24 05:06 Blood Pressure Right Arm 120/75 01/12/24 16:19 Blood Pressure Location Right Arm 01/13/24 05:06 Blood Pressure Position Supine 01/13/24 05:06 O2 Sat by Pulse Oximetry 98 01/13/24 09:24 Oxygen Delivery Method Nasal Cannula 01/13/24 09:24 Oxygen Flow Rate 4 01/13/24 09:24 Fraction of Inspired Oxygen (FIO2) 50 01/12/24 15:53 Height 5 ft 11 in 01/12/24 16:19 Weight 160 lb 2 oz 01/12/24 16:19 Telemetry Type Remote Telemetry 01/13/24 07:00 Telemetry Monitoring Continues 01/13/24 07:00 Telemetry Heart Rate 60 01/13/24 07:00 Telemetry SPO2 96 01/13/24 07:00 EKG SC Interval 0.20 01/13/24 07:00 EKG QRS Interval 0.13 H 01/13/24 07:00 Telemetry Strip Reading SR with BBB 01/13/24 07:00 Appearance: Positive No Apparent Distress, Alert and Oriented x3 and Thin Skin: Positive [place] and Warm; Negative Rashes HEENT: Positive Normocephalic and Atraumatic; Negative Oral Mucous Moist Neck: Positive Supple and Midline Trachea Chest/Lungs: Positive Clear to Auscultation Bilaterally and Wheezes (mild exp); Negative Rales or Rhonci Heart: Positive RRR GI/: Positive Soft, Nontender, Bowel Sounds Normal and No Distention Neurological: Positive Cranial Nerves Intact, Alert, Oriented and Other (+generalized weakness ) Psychiatric: Positive Oriented x4, Appropriate Mood and Appropriate Affect Labs This Visit Labs This Visit: Labs This Visit 01/12/24 01/12/24 01/12/24 13:57 14:25 15:24 WBC 8.02 RBC 4.35 L Hgb 13.1 L Hct 40.7 L MCV 93.6 MCH 30.1 MCHC 32.2 RDW Coeff of Rodo 12.4 Plt Count 190 Immature Gran % (Auto) 0.6 Neut % (Auto) 79.0 H Lymph % (Auto) 10.2 Izard % (Auto) 10.0 Eos % (Auto) 0.0 Baso % (Auto) 0.2 Neut # (Auto) 6.3 Lymph # (Auto) 0.8 Izard # (Auto) 0.8 Eos # (Auto) 0.0 Baso # (Auto) 0.0 Immature Gran # (Auto) 0.1 Puncture Site R rad Base Excess -3.1 L O2 Saturation 92.4 L ABG pH 7.43 ABG pCO2 32.0 L ABG pO2 63.0 L ABG HCO3 21.2 ABG Total CO2 22.2 Geovanny Test Pos Hemoglobin 1.0 Oxyhemoglobin 92.2 L Carboxyhemoglobin 2.1 H Total Hemoglobin 12.0 O2 Delivery Device Venti mask FiO2 % 40.0 Sodium 137.2 Potassium 4.30 Chloride 100.8 Carbon Dioxide 25.1 Anion Gap 15.60 BUN 60.6 H* Creatinine 3.17 H Estimated GFR (MDRD) 19.00 BUN/Creatinine Ratio 19.11 Glucose 113.3 H Calcium 9.30 Magnesium 2.50 H Total Bilirubin 1.60 H AST 53.4 ALT 33.3 Alkaline Phosphatase 108.6 Total Creatine Kinase 557.1 H CK-MB (CK-2) 2.470 H CK-MB (CK-2) % 0.4400 Troponin I 0.038 Total Protein 7.42 Albumin 4.22 Globulin 3.20 Albumin/Globulin Ratio 1.31 Procalcitonin 5.48 H Urine Color Urine Clarity Urine pH Ur Specific [place] Urine Protein Urine Glucose (UA) Urine Ketones Urine Blood Urine Nitrite Urine Bilirubin Urine Urobilinogen Ur Leukocyte Esterase Urine Microscopic RBC Urine Microscopic WBC Ur Squamous Epith Cells Urine Bacteria Influ A Molecular Assay Negative by naat Influ B Molecular Assay Negative by naat RSV Antigen Negative by naat SARS CoV-2 RNA Rapid JENISE Negative 01/12/24 01/13/24 23:27 05:01 WBC 6.03 RBC 3.73 L Hgb 11.4 L Hct 34.4 L D MCV 92.2 MCH 30.6 MCHC 33.1 RDW Coeff of Rodo 12.4 Plt Count 197 Immature Gran % (Auto) 0.7 Neut % (Auto) 92.0 H Lymph % (Auto) 5.5 L [place] % (Auto) 1.8 Eos % (Auto) 0.0 Baso % (Auto) 0.0 Neut # (Auto) 5.6 Lymph # (Auto) 0.3 L Izard # (Auto) 0.1 L Eos # (Auto) 0.0 Baso # (Auto) 0.0 Immature Gran # (Auto) 0.0 Puncture Site Base Excess O2 Saturation ABG pH ABG pCO2 ABG pO2 ABG HCO3 ABG Total CO2 Geovanny Test Hemoglobin Oxyhemoglobin Carboxyhemoglobin Total Hemoglobin O2 Delivery Device FiO2 % Sodium 134.2 L Potassium 4.02 Chloride 106.2 Carbon Dioxide 17.3 L D Anion Gap 14.72 BUN 53.9 H Creatinine 2.47 H D Estimated GFR (MDRD) 26.00 BUN/Creatinine Ratio 21.82 Glucose 273.1 H D Calcium 8.35 L Magnesium Total Bilirubin 0.92 AST 42.5 ALT 27.5 Alkaline Phosphatase 106.3 Total Creatine Kinase CK-MB (CK-2) CK-MB (CK-2) % Troponin I Total Protein 6.12 L Albumin 3.41 L Globulin 2.71 Albumin/Globulin Ratio 1.25 Procalcitonin Urine Color Yellow Urine Clarity Clear Urine pH 5.5 Ur Specific [place] 1.020 Urine Protein 1+ H Urine Glucose (UA) Trace H Urine Ketones Negative Urine Blood Trace-intact H Urine Nitrite Negative Urine Bilirubin Negative Urine Urobilinogen 0.2 Ur Leukocyte Esterase Negative Urine Microscopic RBC 0-2 Urine Microscopic WBC 0-2 Ur Squamous Epith Cells 0-2 Urine Bacteria Trace Influ A Molecular Assay Influ B Molecular Assay RSV Antigen SARS CoV-2 RNA Rapid JENISE Microbiology This Visit 01/12/24 14:25 Throat Group A Strep Molecular Assay - Final Imaging Imaging: EXAM: CHEST RADIOGRAPH TECHNIQUE: Single frontal chest radiograph. HISTORY: Shortness of breath. COMPARISON: 08/20/2015 FINDINGS: EKG leads project over the chest. Multiple calcified granulomas bilaterally, left and right, with multiple calcified hilar and mediastinal nodes, again noted. Equivocal mild pneumonia versus atelectasis of the right base. No pleural effusion or pneumothorax is seen. Heart size is normal. Small hiatal hernia. No acute displaced rib fractures are identified. IMPRESSION: 1. Equivocal mild pneumonia versus atelectasis of the right base. EXAM: CT ABDOMEN AND PELVIS WITHOUT CONTRAST HISTORY: Acute renal failure abdominal pain TECHNIQUE: CT acquisition of the abdomen and pelvis from the lower thorax through the pelvis without IV contrast administration. 2-D coronal and sagittal reformatted images were obtained from the axial source images. Oral Contrast: None. CT Dose Reduction Techniques Performed: Yes. COMPARISON: None. FINDINGS: Lower Thorax: There is right lower lobe pneumonia. There is patchy pneumonia in the left lower lobe with scarring. There are calcified granulomas. Liver: No mass. Normal morphology. Biliary: Distended gallbladder without stones. Pancreas: No mass or evidence of pancreatitis. No duct dilation. Spleen: No mass. No splenomegaly. Adrenals: No mass. Kidneys/Ureters: No renal mass. Multiple bilateral renal stones are present. There is no hydronephrosis. GI Tract: No bowel dilation. No bowel wall thickening. Peritoneal Cavity: No ascites. Retroperitoneum: No mass or fluid collection. Lymph Nodes: No lymphadenopathy. Vasculature: There is an infrarenal endoluminal aortobi-iliac stent graft. Pelvis: Normal pelvic structures. Bladder is normal. Bones/Soft Tissues: Scoliosis. Degenerative disc disease. There are bilateral fat containing inguinal hernias. IMPRESSION: 1. Right lower lobe pneumonia. 2. Bilateral nephrolithiasis without hydronephrosis. 3. Aortobi-iliac endoluminal stent graft. 4. Other noncontributory details as described above. EXAM: CHEST CT WITHOUT CONTRAST. Technique: Chest CT was performed without contrast. Multiplanar reformats were made. History: Respiratory failure Comparison: None. FINDINGS: Lungs/Pleura: Mixed changes in the right lower lobe consisting of some peribronchial thickening, interstitial and ground-glass density changes as well as areas of mixed nodularity. May reflect developing consolidating pneumonia. There is also ground-glass change in the inferior posterior right upper lobe. Scar versus atelectasis left lung. Micronodule left upper lobe less than 3 mL image 14. Scattered calcified granulomas are present bilaterally. Trace effusion on the right.No pneumothorax. Mediastinum: Calcified mediastinal lymph nodes. Cardiovascular: Cardiac size is normal No pericardial effusion. Aortic ectasia. Measures up to 3.5 cm ascending thoracic aorta. Chest wall, thoracic inlet, and axillae: No mass or adenopathy. Imaged upper abdomen and GE junction: Bilateral nephrolithiasis. Small hiatal hernia. Endovascular stent aorta. Bones: Degenerative change of the thoracic spine. IMPRESSION: 1. Developing infiltrative process with a somewhat reticular nodular and mixed with ground-glass density changes right lower lobe. 2. Less pronounced pneumonia/infiltrate right upper lobe. 3. Ascending aortic ectasia. The 4. Short-term follow-up after resolution of current process recommended to reassess the area of nodularity 3 months or less. 5. Nephrolithiasis. 6. Granulomatous disease 7. Bilateral nephrolithiasis. Review Statement Review Statement: I have independently reviewed and interpreted the labs/EKGs/imaging that were ordered by the ER provider. I have reviewed all outside records that are available currently in our EMR including imaging/notes/labs from previous visits. Plan Plan: 1. Acute hypoxic respiratory failure in setting of CAP - Duonebs, abx, steroids, RT, Wean O2 when able. Does not wear O2 at home. 2. CAP, right - Cont rocephin and doxy, solumedrol, duonebs. Strep pneumo and legionella ordered. MRSA swab pending. 3. NEFTALY, stage I in setting of CKD - Improved today, likely dehydration but urine cr and na ordered. 4. Acute COPD exacerbation - Plan as #2. Would benefit from PFT outpatient. 5. Hypertension - Holding losartan/hctz in light of NEFTALY 6. GERD - Cont home meds 7. Hyperlipidemia - Cont home meds 8. BPH - Cont home meds. Has elevated PSA. PCP following outpatient. DVT Prophylaxis: Lovenox Time Spent: Greater than 80 minutes spent with patient, 50% of the time spent with this patient was devoted to counseling and coordination of care. [facility]in minutes spent discussing advance care planning. Smoking Cessation: 3 minutes spent discussing smoking cessation. Admit to: Inpt Discussed Plan of Care with Dr. Viki Oneill. Medications Medication Orders: Medications Ordered Category Date Time Status Acetaminophen [Tylenol] Meds 01/12/24 16:32 Active 650 mg PO Q4H PRN Ceftriaxone/D5w 1 gm Premix [Rocephin 1 gm/50 ml D5w] Meds 01/13/24 09:00 Active 1 gm in 50 ml IV DAILY Doxycycline Hyclate Inj [Doxy-100] 100 mg Meds 01/12/24 17:00 Active 0.9 % Sodium Chloride [Sodium Chloride 100Ml] 100 ml IV Q12HR Ipratropium/Albuterol Neb [Duoneb] Meds 01/13/24 12:00 Active 3 ml NEB RTQ6H Methylprednisolone Sod Succ/Pf [Solu-Medrol 40 mg] Meds 01/12/24 21:00 Active 40 mg IVP Q8HR Ondansetron HCl/Pf [Zofran 4 mg/2 ml] Meds 01/12/24 16:32 Active 4 mg IVP Q6H PRN Pantoprazole Sodium [Protonix] Meds 01/13/24 06:00 Active 40 mg PO QDAC2 Ringers Lactated Solution [Lactated Ringers] 1,000 ml Meds 01/12/24 17:00 Active IV 100 mls/hr Rosuvastatin Calcium [Crestor] Meds 01/13/24 09:00 Active 20 mg PO DAILY Tamsulosin HCl [Flomax] Meds 01/13/24 09:00 Active 0.4 mg PO DAILY
[2024-01-13] MEDS: DUONEB NEB SCH (12:43)
[2024-01-13] MEDS: TYLENOL PO PRN (20:39)
[2024-01-14 03:12] LABS: CREATININE, URINE 97.9 mg/dL (Not Estab.)
[2024-01-14 05:58] LABS: BASOPHILS % (AUTO) 0.2 % (0.0-3.0); EOSINOPHILS % (AUTO) 0.1 % (0.0-7.0); HEMATOCRIT 34.1 % (42.0-52.0); HEMOGLOBIN 11.1 g/dl (14.0-18.0); IMMATURE GRANULOCYTE # (AUTO) 0.1 (0.0-1.0); IMMATURE GRANULOCYTE % (AUTO) 0.5 % (0.0-5.0); LYMPHOCYTES # (AUTO) 0.7 K/uL (0.60-3.4); LYMPHOCYTES % (AUTO) 2.8 (10.0-50.0); MEAN CORPUSCULAR HEMOGLOBIN 30.3 pg (27.0-31.0); MEAN CORPUSCULAR HGB CONC 32.6 (31.8-35.4); MEAN CORPUSCULAR VOLUME 93.2 fl (80.0-94.0); MONOCYTES # (AUTO) 0.6 K/uL (0.4-2.0); MONOCYTES % (AUTO) 2.3 (0-10); NEUTROPHILS # (AUTO) 22.9 K/ul (2.0-6.9); NEUTROPHILS % (AUTO) 94.1 % (42.2-75.2); PLATELET COUNT 219 10^3/uL (140-440); RDW COEFFICIENT OF VARIATION 12.4 % (11.6-14.8); RED BLOOD COUNT 3.66 10^6/ul (4.70-6.10)
[2024-01-14 06:15] LABS: ALANINE AMINOTRANSFERASE 27.7 U/L (0-50); ALBUMIN 3.18 g/dL (3.5-5.0); ALKALINE PHOSPHATASE 118.6 U/L (56-119); BILIRUBIN,TOTAL 0.35 mg/dL (0.2-1.3); BLOOD UREA NITROGEN 43.4 mg/dL (9-20); CALCIUM 8.84 mg/dL (8.4-10.2); CARBON DIOXIDE 20.2 mmol/L (22-30.0); CREATININE 2.01 mg/dL (0.60-1.10); GLUCOSE 165.8 mg/dL (74-106); POTASSIUM 3.91 mmol/L (3.5-5.1); SODIUM 136.7 mmol/L (134.5-145); TOTAL PROTEIN 5.83 g/dL (6.3-8.2)
[2024-01-14 06:44] LABS: WHITE BLOOD COUNT 24.36 K/ul (4.2-10.2)
--- NOTE | 2024-01-14 09:06 | PCM.PROG ---
Date/Time Seen Date Seen by Provider: 01/14/24 Time Seen by Provider: 08:30 Provider Provider: ROSS PFEIFFER PA-C, [facility] Chief Complaint Chief Complaint: RHABDOMYLOSIS; ACUTE HYPOX; RESP FAIL; COPD EX; PN Subjective Subjective: Patient is feeling better, has been talking on the phone. Has been on RA but did get hypoxic while sleeping last night. Ambulatory. Eating well. Renal function not quite at baseline. Objective Appearance: Positive No Apparent Distress, Alert and Oriented x3 and Thin Chest/Lungs: Positive Clear to Auscultation Bilaterally; Negative Rales, Rhonci or Wheezes Heart: Positive RRR GI/: Positive Soft, Nontender, Bowel Sounds Normal and No Distention Neurological: Positive Cranial Nerves Intact, Alert, Oriented and Muscle Strength 5/5 in Upper and Lower Extremities Bilaterally Vital Signs Vital Signs: Vital Signs: Last 24 Hours 01/13/24 09:24 01/13/24 13:00 01/13/24 14:00 Temperature 97.2 F L Temperature Source Temporal Artery Scan Pulse Rate 76 Respiratory Rate 16 Blood Pressure 138/75 Blood Pressure Mean 96 Blood Pressure Location Right Arm Blood Pressure Position Sitting O2 Sat by Pulse Oximetry 98 95 Oxygen Delivery Method Nasal Cannula Nasal Cannula Oxygen Flow Rate 4 1 Telemetry Type Remote Telemetry Telemetry Monitoring Continues Telemetry Heart Rate 82 Telemetry SPO2 [address] Interval 0.17 EKG QRS Interval 0.05 L Telemetry Strip Reading NSR 01/13/24 19:00 01/13/24 20:00 01/13/24 20:32 Temperature 97.6 F Temperature Source Temporal Artery Scan Pulse Rate 82 Respiratory Rate 19 18 Blood Pressure 162/65 H Blood Pressure Mean 97 Blood Pressure Location Right Arm Blood Pressure Position Sitting O2 Sat by Pulse Oximetry 94 L Oxygen Delivery Method Room Air Room Air Oxygen Flow Rate Telemetry Type Remote Telemetry Telemetry Monitoring Continues Telemetry Heart Rate 80 Telemetry SPO2 [address] Interval 0.14 EKG QRS Interval 0.04 L Telemetry Strip Reading sinus rhythm 01/13/24 20:45 01/14/24 01:00 01/14/24 05:36 Temperature 97.5 F L Temperature Source Temporal Artery Scan Pulse Rate 71 Respiratory Rate 18 Blood Pressure 155/99 H Blood Pressure Mean 117 Blood Pressure Location Left Arm Blood Pressure Position Supine O2 Sat by Pulse Oximetry 92 L 95 Oxygen Delivery Method Room Air Room Air Oxygen Flow Rate Telemetry Type Remote Telemetry Telemetry Monitoring Continues Telemetry Heart Rate 81 Telemetry SPO2 [address] Interval 0.14 EKG QRS Interval 0.07 Telemetry Strip Reading Sinus Rhythm 01/14/24 05:45 01/14/24 07:00 Temperature Temperature Source Pulse Rate Respiratory Rate Blood Pressure Blood Pressure Mean Blood Pressure Location Blood Pressure Position O2 Sat by Pulse Oximetry 96 Oxygen Delivery Method Room Air Oxygen Flow Rate Telemetry Type Remote Telemetry Telemetry Monitoring Continues Telemetry Heart Rate 53 L Telemetry SPO2 [address] Interval 0.20 EKG QRS Interval 0.05 L Telemetry Strip Reading Bradycardia Lab Results Lab Results: Lab Results: Last 24 Hours 01/14/24 01/12/24 05:10 23:29 WBC 24.36 H D RBC 3.66 L Hgb 11.1 L Hct 34.1 L MCV 93.2 MCH 30.3 MCHC 32.6 RDW Coeff of Rodo 12.4 Plt Count 219 Immature Gran % (Auto) 0.5 Neut % (Auto) 94.1 H Lymph % (Auto) 2.8 L [place] % (Auto) 2.3 Eos % (Auto) 0.1 Baso % (Auto) 0.2 Neut # (Auto) 22.9 H Lymph # (Auto) 0.7 [place] # (Auto) 0.6 Eos # (Auto) 0.0 Baso # (Auto) 0.0 Immature Gran # (Auto) 0.1 Sodium 136.7 Potassium 3.91 Chloride 107.0 Carbon Dioxide 20.2 L Anion Gap 13.41 BUN 43.4 H Creatinine 2.01 H Estimated GFR (MDRD) 33.00 BUN/Creatinine Ratio 21.59 Glucose 165.8 H Calcium 8.84 Total Bilirubin 0.35 AST 38.0 ALT 27.7 Alkaline Phosphatase 118.6 Total Protein 5.83 L Albumin 3.18 L Globulin 2.65 Albumin/Globulin Ratio 1.20 Procalcitonin 1.77 H Ur Random Sodium 45 Urine Creatinine 97.9 Additional Comments Additional Comments: I have independently reviewed and interpreted the labs/EKGs/imaging ordered during this hospital stay. I have reviewed outside records that are available in our EMR that pertain to medical stay including imaging/notes/labs from previous visits. Active Medications Active Medications: Medications Generic Name Dose Route Start Last Admin Trade Name Freq PRN Reason Stop Dose Admin Acetaminophen 650 mg 01/12/24 16:32 01/13/24 20:39 Acetaminophen 325 Mg Tablet PO 650 mg Q4H PRN Administration Mild Pain Albuterol/Ipratropium 3 ml 01/13/24 12:00 01/14/24 05:47 Ipratropium/Albuterol Vial.Neb NEB 3 ml RTQ6H JODY Administration CEFTRIAXONE/D5W 1 GM PREMIX 1 gm in 50 mls @ 100 mls/hr 01/13/24 09:00 01/13/24 08:49 Rocephin 1 Gm/50 Ml D5w IV 01/16/24 08:59 100 mls/hr DAILY JODY Administration Lactated Ringer's 1,000 mls @ 100 mls/hr 01/12/24 17:00 01/13/24 23:55 Lactated Ringers IV Not Given .Q10H JODY Doxycycline Hyclate 100 mg/ 100 mls @ 50 mls/hr 01/12/24 17:00 01/14/24 08:55 Sodium Chloride IV 01/15/24 16:59 50 mls/hr Q12HR JODY Administration Methylprednisolone Sodium Succinate 40 mg 01/12/24 21:00 01/14/24 05:04 Methylprednisolone Sod Succ/Pf 40 Mg/Ml Vial IVP 40 mg Q8HR JODY Administration Ondansetron HCl 4 mg 01/12/24 16:32 Ondansetron Hcl/Pf 4 Mg/2 Ml Sdv IVP Q6H PRN Nausea / Vomiting Pantoprazole Sodium 40 mg 01/13/24 06:00 01/14/24 05:04 Pantoprazole Sodium 40 Mg Tablet. PO 40 mg QDAC2 JODY Administration Rosuvastatin Calcium 20 mg 01/13/24 09:00 01/14/24 09:00 Rosuvastatin Calcium 10 Mg Tablet PO 20 mg DAILY JODY Administration Tamsulosin HCl 0.4 mg 01/13/24 09:00 01/14/24 09:00 Tamsulosin Hcl 0.4 Mg Cap.Er.24h PO 0.4 mg DAILY JODY Administration Plan Plan: 1. Acute hypoxic respiratory failure in setting of CAP - Duonebs, abx, steroids, RT, Wean O2 when able. Does not wear O2 at home. 2. CAP, right - Cont rocephin and doxy, decrease solumedrol, duonebs. Strep pneumo and legionella ordered. MRSA swab pending. 3. NEFTALY, stage I in setting of CKD - Improved today but not at baseline, clinically likely dehydration. Fena 1%/indeterminate. 4. Acute COPD exacerbation - Plan as #2. Would benefit from PFT outpatient. 5. Hypertension - Holding losartan/hctz in light of NEFTALY 6. GERD - Cont home meds 7. Hyperlipidemia - Cont home meds 8. BPH - Cont home meds. Has elevated PSA. PCP following outpatient. DVT Prophylaxis: Lovenox Dispo: Possible dc tomorrow. Review Statement Review Statement: I have personally discussed and reviewed the patient's visit/currently labs/imaging/decision making with Dr. Oneill, my supervising attending. Greater that 50 minutes spent with patient, 50% of the time spent with this patient was devoted to counseling and coordination of care.
[2024-01-15 05:03] LABS: HEMATOCRIT 34.1 % (42.0-52.0); HEMOGLOBIN 11.2 g/dl (14.0-18.0); IMMATURE GRANULOCYTE # (AUTO) 0.3 (0.0-1.0); IMMATURE GRANULOCYTE % (AUTO) 1.2 % (0.0-5.0); LYMPHOCYTES # (AUTO) 0.8 K/uL (0.60-3.4); LYMPHOCYTES % (AUTO) 3.7 (10.0-50.0); MEAN CORPUSCULAR HEMOGLOBIN 30.5 pg (27.0-31.0); MEAN CORPUSCULAR HGB CONC 32.8 (31.8-35.4); MEAN CORPUSCULAR VOLUME 92.9 fl (80.0-94.0); MONOCYTES # (AUTO) 0.6 K/uL (0.4-2.0); MONOCYTES % (AUTO) 2.7 (0-10); NEUTROPHILS # (AUTO) 19.6 K/ul (2.0-6.9); NEUTROPHILS % (AUTO) 92.4 % (42.2-75.2); PLATELET COUNT 231 10^3/uL (140-440); RDW COEFFICIENT OF VARIATION 12.6 % (11.6-14.8); RED BLOOD COUNT 3.67 10^6/ul (4.70-6.10); WHITE BLOOD COUNT 21.27 K/ul (4.2-10.2)
[2024-01-15 05:17] LABS: ALANINE AMINOTRANSFERASE 30.4 U/L (0-50); ALBUMIN 3.21 g/dL (3.5-5.0); ALKALINE PHOSPHATASE 108.4 U/L (56-119); ASPARTATE AMINO TRANSFERASE 40.1 U/L (17-59); BILIRUBIN,TOTAL 0.29 mg/dL (0.2-1.3); BLOOD UREA NITROGEN 39.6 mg/dL (9-20); CALCIUM 8.6 mg/dL (8.4-10.2); CARBON DIOXIDE 25.9 mmol/L (22-30.0); CHLORIDE 105.8 mmol/L (98-107); CREATININE 1.69 mg/dL (0.60-1.10); GLUCOSE 158.5 mg/dL (74-106); POTASSIUM 4.24 mmol/L (3.5-5.1); SODIUM 137.4 mmol/L (134.5-145); TOTAL PROTEIN 5.83 g/dL (6.3-8.2)
--- NOTE | 2024-01-15 09:45 | DCSUM ---
Admission Date Admission Date: 01/12/24 Discharge Date Discharge Date: 01/15/24 Admission Diagnosis Admission Diagnosis: 1. Acute hypoxic respiratory failure in setting of CAP 2. CAP, right 3. NEFTALY, stage I in setting of CKD 4. Acute COPD exacerbation Discharge Diagnosis Discharge Diagnosis: 1. Acute hypoxic respiratory failure in setting of CAP - resolved. 2. CAP, right 3. NEFTALY, stage I in setting of CKD 4. Acute COPD exacerbation 5. Hypertension 6. GERD 7. Hyperlipidemia 8. BPH Hospital Provider Hospital Provider: ROSS PFEIFFER PA-C, [facility] [place] Primary Care Physician Primary Care Physician: LUCHO SOOD MD Summary of History and Physical Summary of History and Physical: Patient is a 73 year old male with pmhx of GERD, anemia, elevated PSA, abdominal aneurysm s/p stent, chronic smoker, hx of CVA 3 years ago who presented to ER as directed by PCP for worsening SOB, URI symptoms, fever, diarrhea, and hypoxia noted at PCP office. Pt states this has been ongoing for past few days. He was noted in ER to have 101 temp and saturating in the 80s. He eventually was up to 10 L venturi mask. CXR showed RLL pna. Procal >5. Renal function worsened. He was given zosyn and duonebs and fluids. Admitted to med surg. Once on floor, CT c/a/p without contrast done. Confirmed RLL and RUL pneumonia, no other acute processes noted. Today patient is down to 4L, he is feeling better, cutting up with the staff. States he lives alone in an apt but his daughter helps him. Does not wear oxygen at baseline. Hospital Course Subjective: Patient was treated with rocephin, doxy, duonebs, solumedrol. He got up to 10L initially but this was able to be quickly weaned down to 5L. By the following day patient was on 1-2L. He has been on RA the last 24 hours except while sleeping. His oxygen does drop while sleeping/snoring. Discussed with him he likely has some underlying ANAY. Would recommend outpatient sleep study. His renal function has returned to baseline with fluids. He is feeling well. Has been ambulatory everywhere. Will discharge on remainder of abx - doxy and cefpodoxime and steroids. Pt has inhaler at home. Pt did not qualify for home O2. Appearance: Pleasant, No Apparent Distress and Alert HEENT: MMM and Supple CVS: No Murmur Abdomen: Soft, Non-Tender and No Distention Respiratory: No Accessory Muscle Use Extremities: No Edema Vital Signs: Most Recent Vital Signs Temperature 96.5 F L 01/15/24 04:56 Temperature Source Oral 01/15/24 04:56 Temperature Source Temporal Artery Scan 01/12/24 14:00 Pulse Rate 49 L 01/15/24 04:56 Respiratory Rate 20 01/15/24 08:00 Blood Pressure 159/89 H 01/15/24 04:56 Blood Pressure Mean 112 01/15/24 04:56 Blood Pressure Right Arm 120/75 01/12/24 16:19 Blood Pressure Location Right Arm 01/15/24 04:56 Blood Pressure Position Supine 01/15/24 04:56 O2 Sat by Pulse Oximetry 96 01/15/24 05:40 Oxygen Delivery Method Room Air 01/15/24 08:00 Oxygen Flow Rate 2 01/15/24 05:40 Fraction of Inspired Oxygen (FIO2) 50 01/12/24 15:53 Height 5 ft 11 in 01/12/24 16:19 Weight 160 lb 2 oz 01/12/24 16:19 Telemetry Type Remote Telemetry 01/15/24 07:00 Telemetry Monitoring Continues 01/15/24 07:00 Telemetry Heart Rate 46 L 01/15/24 07:00 Telemetry SPO2 91 L 01/15/24 07:00 EKG MS Interval 0.21 H 01/15/24 07:00 EKG QRS Interval 0.09 01/15/24 07:00 Telemetry Strip Reading Sinus Deepak with PACs 01/15/24 07:00 Imaging: EXAM: CHEST RADIOGRAPH TECHNIQUE: Single frontal chest radiograph. HISTORY: Shortness of breath. COMPARISON: 08/20/2015 FINDINGS: EKG leads project over the chest. Multiple calcified granulomas bilaterally, left and right, with multiple calcified hilar and mediastinal nodes, again noted. Equivocal mild pneumonia versus atelectasis of the right base. No pleural effusion or pneumothorax is seen. Heart size is normal. Small hiatal hernia. No acute displaced rib fractures are identified. IMPRESSION: 1. Equivocal mild pneumonia versus atelectasis of the right base. EXAM: CT ABDOMEN AND PELVIS WITHOUT CONTRAST HISTORY: Acute renal failure abdominal pain TECHNIQUE: CT acquisition of the abdomen and pelvis from the lower thorax through the pelvis without IV contrast administration. 2-D coronal and sagittal reformatted images were obtained from the axial source images. Oral Contrast: None. CT Dose Reduction Techniques Performed: Yes. COMPARISON: None. FINDINGS: Lower Thorax: There is right lower lobe pneumonia. There is patchy pneumonia in the left lower lobe with scarring. There are calcified granulomas. Liver: No mass. Normal morphology. Biliary: Distended gallbladder without stones. Pancreas: No mass or evidence of pancreatitis. No duct dilation. Spleen: No mass. No splenomegaly. Adrenals: No mass. Kidneys/Ureters: No renal mass. Multiple bilateral renal stones are present. There is no hydronephrosis. GI Tract: No bowel dilation. No bowel wall thickening. Peritoneal Cavity: No ascites. Retroperitoneum: No mass or fluid collection. Lymph Nodes: No lymphadenopathy. Vasculature: There is an infrarenal endoluminal aortobi-iliac stent graft. Pelvis: Normal pelvic structures. Bladder is normal. Bones/Soft Tissues: Scoliosis. Degenerative disc disease. There are bilateral fat containing inguinal hernias. IMPRESSION: 1. Right lower lobe pneumonia. 2. Bilateral nephrolithiasis without hydronephrosis. 3. Aortobi-iliac endoluminal stent graft. 4. Other noncontributory details as described above. EXAM: CHEST CT WITHOUT CONTRAST. Technique: Chest CT was performed without contrast. Multiplanar reformats were made. History: Respiratory failure Comparison: None. FINDINGS: Lungs/Pleura: Mixed changes in the right lower lobe consisting of some peribronchial thickening, interstitial and ground-glass density changes as well as areas of mixed nodularity. May reflect developing consolidating pneumonia. There is also ground-glass change in the inferior posterior right upper lobe. Scar versus atelectasis left lung. Micronodule left upper lobe less than 3 mL image 14. Scattered calcified granulomas are present bilaterally. Trace effusion on the right.No pneumothorax. Mediastinum: Calcified mediastinal lymph nodes. Cardiovascular: Cardiac size is normal No pericardial effusion. Aortic ectasia. Measures up to 3.5 cm ascending thoracic aorta. Chest wall, thoracic inlet, and axillae: No mass or adenopathy. Imaged upper abdomen and GE junction: Bilateral nephrolithiasis. Small hiatal hernia. Endovascular stent aorta. Bones: Degenerative change of the thoracic spine. IMPRESSION: 1. Developing infiltrative process with a somewhat reticular nodular and mixed with ground-glass density changes right lower lobe. 2. Less pronounced pneumonia/infiltrate right upper lobe. 3. Ascending aortic ectasia. The 4. Short-term follow-up after resolution of current process recommended to reassess the area of nodularity 3 months or less. 5. Nephrolithiasis. 6. Granulomatous disease 7. Bilateral nephrolithiasis. Lab Results Last 24 Hours: 01/15/24 04:45 WBC 21.27 H RBC 3.67 L Hgb 11.2 L Hct 34.1 L MCV 92.9 MCH 30.5 MCHC 32.8 RDW Coeff of Rodo 12.6 Plt Count 231 Immature Gran % (Auto) 1.2 Neut % (Auto) 92.4 H Lymph % (Auto) 3.7 L [place] % (Auto) 2.7 Eos % (Auto) 0.0 Baso % (Auto) 0.0 Neut # (Auto) 19.6 H Lymph # (Auto) 0.8 [place] # (Auto) 0.6 Eos # (Auto) 0.0 Baso # (Auto) 0.0 Immature Gran # (Auto) 0.3 Sodium 137.4 Potassium 4.24 Chloride 105.8 Carbon Dioxide 25.9 Anion Gap 9.94 BUN 39.6 H Creatinine 1.69 H Estimated GFR (MDRD) 40.00 BUN/Creatinine Ratio 23.43 Glucose 158.5 H Calcium 8.60 Total Bilirubin 0.29 AST 40.1 ALT 30.4 Alkaline Phosphatase 108.4 Total Protein 5.83 L Albumin 3.21 L Globulin 2.62 Albumin/Globulin Ratio 1.22 Discharge Instructions Discharge Planning: Discharge Planning > [address] Viki Oneill. Discharge Medications: Medications at Discharge (Home Meds & RX) Discharge Plan Discharge Discharge Orders: Discharge Patient (ONCE); Ordered 01/15/24 Ordered By: ROSS PFEIFFER Activity Restrictions/Additional Instructions: DISCHARGE TO HOME DIAGNOSIS: PNEUMONIA, RENAL FAILURE PHARMACY: [facility] FINISH ANTIBIOTICS AND STEROIDS F/U WITH DR. SOOD NEXT WEEK RECOMMEND OUTPATIENT SLEEP STUDY - YOUR OXYGEN DROPS WHILE SLEEPING/SNORING NO STRENUOUS ACTIVITY FOR ONE WEEK THEN SLOWLY RESUME REGULAR ACTIVITY AFTER THAT [employer] NEW PRESCRIPTIONS AT [facility] AND COMPLETE ORDERED. Instructions: Doxycycline (By mouth), Prednisone (By mouth), Cefpodoxime Proxetil (By mouth), Pneumonia (DC), Shortness of Breath (DC) Patient Disposition: HOME SELF-CARE Prescriptions: New doxycycline hyclate 100 mg capsule 100 mg PO BID 3 Days Qty: 6 0RF cefpodoxime 200 mg tablet 200 mg PO BID 3 Days Qty: 6 0RF Rx Instructions: must administer with a meal/food prednisone 20 mg tablet 20 mg PO BID 3 Days Qty: 6 0RF Continued rosuvastatin 20 mg tablet See Rx Instructions .ROUTE .COMPLEX Qty: 90 0RF Dose Instruction: TAKE 1 TABLET BY MOUTH DAILY Rx Instructions: TAKE 1 TABLET BY MOUTH DAILY losartan-hydrochlorothiazide 100-12.5 mg tablet See Rx Instructions .ROUTE .COMPLEX Qty: 90 0RF Dose Instruction: TAKE 1 TABLET BY MOUTH DAILY Rx Instructions: TAKE 1 TABLET BY MOUTH DAILY tamsulosin [Flomax] 0.4 mg capsule 0.4 mg PO QDAY Qty: 30 5RF albuterol sulfate [Ventolin HFA] 90 mcg/actuation HFA aerosol inhaler 2 puff inhalation Q4H PRN (Reason: shortness of breath or wheezing) Qty: 8.5 1RF pantoprazole [Protonix] 40 mg tablet,delayed release (DR/EC) 40 mg PO QDAY Qty: 30 2RF Did you review [place] RIDING [employer]ACH for ALL controlled substances?: Not Applicable Discussed opioids are addictive and Narcan is available by prescription or from pharmacy.: No Condition: Stable Referrals: LUCHO SOOD MD [Primary Care Provider] - 01/21/24 11:00 am
[2024-01-15 11:05] VITALS: BP 174/71; PULSE 50; RESP 17; TEMP 97.6
[2024-01-15] MEDS ORDERED: SOLU-MEDROL 40 MG IVP SCH (21:00)
[2024-01-18 09:01] LABS: SPECIMEN SOURCE URINE
[2024-01-18 09:03] LABS: STREP PNEUMO AG NEGATIVE
== END 2024-01-15 11:30 | disposition home or self-care (01) | DRG 189 ==
LOC: ED 13:55 → MEDSURG B 15:43
PROVIDERS: ADMIT Hospitalist; ATTEND Physician Assistant